=== PATIENT | male | born 1945 | race Caucasian/White ===

== ENCOUNTER → 2017-12-03 | Outpatient (CLI) | payer MEDICARE, BC ==
[~2017-12-03] MED LIST: ACE500 PO; ATOR-1 PO; ATOR40TA24 PO; BIMA2.5D5 OP; CALC-734 PO; CALC-797 PO; CEPH500C24 PO; FLU60SYR30 IM ONLY; MELO-207 PO; MELO7.5O3 PO; MULT-1335 PO; OLME1TAB54 PO; OLME1TAB57 PO; OMEG-26 PO; PRA20 PO; PRIM250T73 PO; PROP160C20 PO; PROP160C29 PO; SULF-198 PO; TIM5OD OU; TUM500 PO; [UNRECOGNIZED DRUG - CODE] PO
--- NOTE | 2017-12-03 10:26 | EKG ---
FACILITY: [facility] - [place] PATIENT NAME: BLAIR GERONIMO : [id number] MR: [id number]: [id number] EXAM DATE: ORDERING PHYSICIAN: OSBALDO MOORE TECHNOLOGIST: Test Reason : [id number] Blood Pressure : / mmHG Vent. Rate : 062 BPM Atrial Rate : 062 BPM P-R Int : 158 ms QRS Dur : 092 ms QT Int : 424 ms P-R-T Axes : 067 -08 048 degrees QTc Int : 430 ms Normal sinus rhythm Low voltage QRS No ST-T abnormalities No previous ECGs available Confirmed by MARCO RIVERA ([id number]) on 12/03/2017 4:12:12 PM Referred By: OSCAR Confirmed By:MARCO RIVERA
== END ==
LOC: LAB 10:03
PROVIDERS: ATTEND Anesthesiology
DX: Z01.812 Encounter for preprocedural laboratory examination (principal); Z01.810 Encounter for preprocedural cardiovascular examination; G25.4 Drug-induced chorea; H53.8 Other visual disturbances; H53.40 Unspecified visual field defects; H02.021 Mechanical entropion of right upper eyelid; H02.024 Mechanical entropion of left upper eyelid
CPT/HCPCS: 36415; 82310; 82374; 82435; 82565; 82947; 84132; 84295; 84520; 93005